=== PATIENT | female | born 1995 | race Hispanic/Latino ===

== ENCOUNTER 2023-05-21 05:14 | Day surgery (SDC) | payer OTHER, SELFPAY ==
--- NOTE | 2023-05-14 15:01 | SUR.PREOP ---
Report to the Outpatient Waiting Room, entrance under the green pavilion located off [facility], at time 0915 on date 05/21/2023. Planned Procedure Time: 1115. Time changes happen often and if your time is changed the preop area will call you the afternoon before. - You and your visitor will be asked to self-screen and do not enter if you have any COVID symptoms. - A mask is optional within the hospital at this time. Patients may have clear liquids (water, carbonated beverages, clear teas, apple juice) until 3 hours prior to surgery with a maximum of 20 ounces- 0815. - No food from midnight until time of surgery - Infants may have breast milk until 4 hours before surgery, formula 6 hours prior to surgery. - Children will be allowed to drink immediately following surgery. If applicable, please bring a bottle or sippy cup to assist with drinking. Juice, water, soda, and popsicles are readily available. For infants on formula, please bring formula the day of surgery. Pacifiers are allowed. Take the following medications with a SIP of water the morning of surgery: N/A DO NOT STOP ANY OF YOUR OTHER PRESCRIPTION MEDICATIONS PRIOR TO SURGERY ?EXCEPT THE FOLLOWING Medications to discontinue per physician N/A Please no make-up, nail [place] of [place], hairspray, perfume, deodorant, or body powder the day of surgery. No jewelry (including any body piercings) or valuables the day of surgery, leave them at home. Please take a shower or bath the night before, or the morning of, surgery with an antibacterial soap. Wear comfortable, loose fitting clothing. Children are encouraged to wear pajamas. - Jewelry must be removed prior to entering the operating room. Rings and piercings that are not removed may be cut off. - The hospital will not accept responsibility for valuables. - Please leave all valuables, including medications, at home the day of surgery. If you are going home after surgery, a licensed local driver must drive you home. - NO public transportation without another adult if you receive anesthesia. - We recommend that an adult stay with you for 24 hours following discharge. - We also recommend that you do not drive, make important decision, drink alcoholic beverages, or take any drugs that were not prescribed by your health care provider for at least 24 hours after your discharge time. For Pediatric surgeries, we recommend two adults accompany the child home. Follow any additional instructions given to you from your surgeon. If you or anyone in your household have experienced Covid symptoms in the past week, please notify your surgeon or the nurse liaison at the phone number below for possible testing. Telephone instructions given to ____patient-Taylor and asked if any additional questions and then verbalized understanding. Patient advised to call surgeon office or pre surgery nurse liaison [phone] if any additional questions.
[2023-05-21] VITALS (8 sets, daily range): BP systolic 90–144; BP diastolic 52–81; PULSE 53–87; RESP 10–20; TEMP 36.4–36.6; O2SAT 93–100
[2023-05-21] MEDS: GABAPENTIN 300 MG CAPSULE PO (09:54)
[2023-05-21] MEDS: ACETAMINOPHEN 500 MG TABLET 1000 MG PO (09:54)
--- NOTE | 2023-05-21 10:02 | WPDANESEPPF ---
Anes - Initial Pre Proc Eval Procedure: Operation Date: 05/21/23 11:15 Proposed Procedures p Diagnostic Laparoscopy with Bilateral Salpingectomy - Arlene Freeman DO Date/Time: 05/21/23 10:02 Surgeon: Arlene Freeman DO Pre Op Diagnosis: Desired Sterility Patient Data Age: 27 Gender: F Height: 1.68 m Weight: Allergies Allergy/AdvReac Type Severity Reaction Status Date / Time No Known Allergies Allergy Verified 05/21/23 09:35 Home Medications Medication Instructions Recorded Confirmed Type No Home Medications 05/14/23 05/14/23 History Patient hx anesthesia problems: none Family hx anesthesia problems: none Results Review: All pre-operative results and documents have been reviewed as part of the pre-operative evaluation. [facility] Past Medical History Medical History (Updated 05/21/23 @ 07:47 by Willie Dotson DO) Anemia Social History Social History Smoking packs per day: 0.5 Smoking cigarettes per day: 10.0 Years smoked: 10 Smoking pack-years: 5.00 Smoking status: Current every day smoker Tobacco type: cigarettes Alcohol intake: former Substance use: never Living arrangements: with family Spiritual care concerns: No Anes - Eval Final PreProcedure Day of Procedure 05/21/23 10:02 Patient weight: normal Heart: regular rate and rhythm Lungs: clear to auscultation Airway: Mallampati scale class II Neurological: alert and oriented Last oral intake: >/= 8 hours ASA classification: II Emergent: no Anesthetic plan: proceed Anesthesia type and monitoring: general ETT and standard monitoring Results Review: All pre-operative results and documents have been reviewed as part of the pre-operative evaluation. Informed Consent: The patient's anesthetic plan and its attendant risks and benefits were discussed with the patient/family/POA. Questions were solicited and answers provided to the satisfaction of the patient/family/POA.
[2023-05-21] MEDS: LACTATED RINGERS 1,000 ML 30 ML IV CONT ×2 (10:15→12:29)
--- NOTE | 2023-05-21 10:24 | WPDHPUPDATE1 ---
History and Physical Update Update Date/Time: 05/21/23 10:24 History and Physical has been reviewed, including an updated exam of the patient. There are NO changes in the patient's condition. Risks, benefits, and alternatives have been discussed and questions answered. Patient agrees to proceed with procedure.
--- NOTE | 2023-05-21 10:24 | PM.IMHP ---
H&P: HPI History of Present Illness Date/Time: 05/21/23 10:24 Chief Complaint: I'm here to have my tubes out Narrative: Patient presents desiring permanent sterilization. Review of Systems Review of Systems: All systems reviewed & are unremarkable except as noted in HPI and below PMFSH Past Medical History Medical History (Updated 05/21/23 @ 10:27 by Arlene Freeman DO) Anemia Social History Social History Smoking packs per day: 0.5 Smoking cigarettes per day: 10.0 Years smoked: 10 Smoking pack-years: 5.00 Smoking status: Current every day smoker Tobacco type: cigarettes Alcohol intake: former Substance use: never Living arrangements: with family Spiritual care concerns: No Meds Home Medications and Allergies Home Medications Medication Instructions Recorded Confirmed Type No Home Medications 05/14/23 05/14/23 History Allergies Allergy/AdvReac Type Severity Reaction Status Date / Time No Known Allergies Allergy Verified 05/21/23 09:35 Vital Signs Vital Signs - 24 hr 05/21/23 10:13 Temperature 36.6 C Pulse Rate 87 Respiratory Rate 16 Blood Pressure 114/81 Pulse Oximetry 98 Oxygen Delivery Room Air Exam Const: General: comfortable and no acute distress Eyes: General: appearance normal, both eyes and all related structures Neck: Neck: supple Resp: Effort & Inspection: normal respiratory effort Cardio: Rate: regular rate Rhythm: regular rhythm GI: GI Palp: Yes Soft to palpation Auscultation: normal bowel sounds Skin: General skin exam: normal color and no rashes or lesions noted Neuro: Speech: normal speech Psych: Mental Status: mental status grossly normal Assessment and Plan Assessment and plan (1) Sterilization: Code(s): Z30.2 - Encounter for sterilization Status: Acute Plan Diagnostic laparoscopy, bilateral salpingectomy. Quality VTE Prophylaxis VTE prophylaxis: mechanical ordered
[2023-05-21] MEDS: KETOROLAC 15 MG/ML VIAL (*BKC) IV PUSH (12:19)
--- NOTE | 2023-05-21 12:33 | P.OP_ITS ---
Procedure Note - Detailed Date of Procedure 05/21/23 Pre-op Diagnosis Desired Sterility Post-op Diagnosis Same Procedure Performed Diagnostic laparosocpy, bilateral salpingectomy Surgeon Arlene Freeman, DO Anesthesia General Indications Desires permanent sterilization Findings Normal appearing vulva and vaginal canal. uterus anteverted and sounded to 11cm. Internally, the abdominal and pelvic organs were unremarkable. Description of Procedure Patient was taken to the operating room where she was placed under general anesthesia. She was prepped and draped in the normal sterile fashion in dorsal lithotomy position. A time-out was performed. No preoperative antibiotics were indicated. Speculum was placed in the vagina and the cervix was visualized. The posterior lip of the cervix was grasped with a single-tooth tenaculum. The cervix was dilated and the uterus was sounded to 11 cm. A uterine manipulator was placed. The tenaculum and speculum removed, gloves were changed, and attention was turned to the abdomen. Skin above the umbilicus was grasped with 2 penetrating towel clamps an area was injected with local. A small incision was made and a Veress needle was introduced. The saline water drop test was performed to confirm intraperitoneal placement. The abdomen was then insufflated to a filling pressure of 15 mmHg. The Veress needle was then replaced with a 5 mm Optiview trocar. Survey of the abdomen after entry revealed no evidence of bowel or vascular injury. The patient was then placed in steep Trendelenburg position. Additional port sites in the right and left lower quadrants were identified, injected and incised. Additional 5 mm trocars were introduced under direct visualization. Survey of the abdomen and pelvis was as described above. The right tube was then elevated and was cauterized and transected off using the LigaSure. The specimen was passed off through the university administrative assistant port. Procedure was repeated in identical fashion on the left-hand side. Survey of the surgical pedicles revealed good hemostasis. The instruments and trocars were removed and the CO2 gas was allowed to escape. The abdominal incisions were closed with 4-0 Monocryl in a subcuticular fashion and covered with skin glue. The uterine manipulator was removed. The patient was taken to the recovery room in stable condition. All instrument and sponge counts were correct at the conclusion of the procedure. Estimated Blood Loss 5 Drains No Packing No Pathology Yes Complications No immediate complications Condition Stable Disposition PACU
[2023-05-21] MEDS: fentaNYL CITRATE INJ (*CRX) 100 MCG/2 ML VIAL 25 MCG IV PUSH ×3 (12:55→13:14)
[2023-05-21] MEDS: oxyCODONE HCL (*CRX) 5 MG TAB IR PO (13:40)
== END 2023-05-21 14:25 | disposition home or self-care (01) ==
PROVIDERS: Visit Provider Obstetrics & Gynecology Gynecologic Oncology
PROC: (CPT 49320; principal; 2023-05-21 11:15)
DX: Z30.2 Encounter for sterilization (principal); F17.210 Nicotine dependence, cigarettes, uncomplicated
CPT/HCPCS: 58661; 88302; A9270; J1100; J1885; J2250; J2405; J2704; J3010; J7120